=== PATIENT | male | born 1990 | race Caucasian/White ===

== ENCOUNTER 2020-01-31 14:55 | Emergency (ER) | payer MEDICAID, OTHER ==
[2020-01-31] MEDS ORDERED: Sodium Chloride 0.9% 10 ML Syringe FLUSH PRN (15:00)
[2020-01-31] MEDS ORDERED: HYDROmorphone 0.5 MG/0.5 ML Syringe IVPUSH ONE (15:10)
--- NOTE | 2020-01-31 16:10 | EDM.PDOC ---
ED HPI GENERAL MEDICAL PROBLEM - General Chief Complaint: Burn Stated Complaint: ELECTROCUTED Time Seen by Provider: 01/31/20 15:00 Source of Information: Reports: Patient History Limitations: Reports: No Limitations - History of Present Illness INITIAL COMMENTS - FREE TEXT/NARRATIVE: The patient presents because he was electrocuted. 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 He felt it go up his arm and into his chest. He went down to the ground but he had no LOC. He has some pain to the left hand, arm and chest. He has no headache, neck pain, abdominal pain, nausea, vomiting, numbness or weakness. Onset: Sudden Duration: Minutes: Location: Reports: Chest, Upper Extremity, Left Quality: Reports: Sharp Severity: Moderate Improves with: Reports: None Worsens with: Reports: None Associated Symptoms: Reports: Chest Pain. Denies: Cough, Fever/Chills, Headaches, Nausea/Vomiting, Shortness of Breath Left Chest Pain Score (Numeric/FACES): 8 Left Arm Pain Score (Numeric/FACES): 8 - Related Data Allergies Allergy/AdvReac Type Severity Reaction Status Date / Time No Known Allergies Allergy Verified 01/31/20 15:06 Home Meds: Home Meds . [No Known Home Meds] 06/27/14 [History] Past Medical History - Past Health History Medical/Surgical History: Denies Medical/Surgical History Social & Family History - Tobacco Use Smoking Status *Q: Current Every Day Smoker Years of Tobacco use: 20 Packs/Tins Daily: 1.5 - Recreational Drug Use Recreational Drug Use: No ED ROS GENERAL - Review of Systems Review Of Systems: See Below Constitutional: Reports: No Symptoms HEENT: Reports: No Symptoms Respiratory: Reports: No Symptoms Cardiovascular: Reports: No Symptoms Endocrine: Reports: No Symptoms GI/Abdominal: Reports: No Symptoms : Reports: No Symptoms Musculoskeletal: Reports: Other (left arm pain) ED EXAM, BURN/SMOKE INHALATION - Physical Exam Exam: See Below Exam Limited By: No Limitations General Appearance: Alert, No Apparent Distress Ears (Abbreviated): Normal External Exam Head: No Symptoms Neck: No Symptoms Respiratory: No Respiratory Distress, Lungs Clear, Normal Breath Sounds Cardiovascular: Regular Rate, Rhythm, No Edema, No Murmur GI/Abdominal: Soft, Non-Tender, No Organomegaly, No Mass Extremities: Other (pain upon palpation to the left index finger with some carbon on it. He also has some pain to the forearm and hand.) EKG INTERPRETATION EKG Date: 01/31/20 Time: 15:00 Rhythm: NSR Rate (Beats/Min): 75 [place]: Normal P-Wave: Present QRS: Normal ST-T: Normal QT: Normal Course - Vital Signs Last Recorded V/S: Last Vital Signs Temp 97.7 F 01/31/20 15:02 Pulse 65 01/31/20 15:02 Resp 20 01/31/20 15:02 BP 123/81 01/31/20 15:02 Pulse Ox 97 01/31/20 15:02 - Orders/Labs/Meds Orders: Active Orders 24 hr Category Date Time Status Cardiac Monitoring [RC] . DIRECTED Care 01/31/20 15:00 Active EKG Documentation Completion [RC] STAT Care 01/31/20 15:01 Active Peripheral IV Care [RC] . DIRECTED Care 01/31/20 15:01 Active Hand Comp Min 3V Lt [CR] Stat Exams 01/31/20 15:01 Taken Sodium Chloride 0.9% [Saline Flush] Med 01/31/20 15:00 Active 10 ml FLUSH ASDIRECTED PRN Peripheral IV Insertion Adult [OM.PC] Stat Oth 01/31/20 15:00 Ordered Medication Orders Sodium Chloride (Saline Flush) 10 ml FLUSH ASDIRECTED PRN PRN Reason: Keep Vein Open Last Admin: 01/31/20 15:23 Dose: 10 ml Labs: Laboratory Tests 01/31/20 01/31/20 Range/Units 15:15 15:15 WBC 7.29 (4.23-9.07) K/mm3 RBC 4.86 (4.63-6.08) M/mm3 Hgb 14.2 (13.7-17.5) gm/dl Hct 41.7 (40.1-51.0) % MCV 85.8 (79.0-92.2) fl MCH 29.2 (25.7-32.2) pg MCHC 34.1 (32.2-35.5) g/dl RDW Std Deviation 40.9 (35.1-43.9) fL Plt Count 221 (163-337) K/mm3 MPV 10.4 (9.4-12.3) fl Neut % (Auto) 44.8 (34.0-67.9) % Lymph % (Auto) 38.8 (21.8-53.1) % [place] % (Auto) 11.8 (5.3-12.2) % Eos % (Auto) 4.0 (0.8-7.0) Baso % (Auto) 0.3 (0.1-1.2) % Neut # (Auto) 3.27 (1.78-5.38) K/mm3 Lymph # (Auto) 2.83 (1.32-3.57) K/mm3 [place] # (Auto) 0.86 H (0.30-0.82) K/mm3 Eos # (Auto) 0.29 (0.04-0.54) K/mm3 Baso # (Auto) 0.02 (0.01-0.08) K/mm3 Sodium 141 (136-145) mEq/L Potassium 3.4 L (3.5-5.1) mEq/L Chloride 105 (98-107) mEq/L Carbon Dioxide 28 (21-32) mEq/L Anion Gap 11.4 (5-15) BUN 16 (7-18) mg/dL Creatinine 1.2 (0.7-1.3) mg/dL Est Cr Clr Drug Dosing 91.65 mL/min Estimated GFR (MDRD) > 60 (>60) mL/min BUN/Creatinine Ratio 13.3 L (14-18) Glucose 89 (74-106) mg/dL Calcium 9.4 (8.5-10.1) mg/dL Total Bilirubin 0.6 (0.2-1.0) mg/dL AST 19 (15-37) U/L ALT 44 (16-63) U/L Alkaline Phosphatase 71 (46-116) U/L Creatine Kinase 124 (39-308) U/L Troponin I < 0.017 (0.00-0.056) ng/mL Total Protein 6.8 (6.4-8.2) g/dl Albumin 3.9 (3.4-5.0) g/dl Globulin 2.9 gm/dL Albumin/Globulin Ratio 1.3 (1-2) Meds: Medications Generic Name Dose Route Start Last Admin Trade Name Freq PRN Reason Stop Dose Admin Sodium Chloride 10 ml 01/31/20 15:00 01/31/20 15:23 Saline Flush FLUSH 10 ml ASDIRECTED PRN Administration Keep Vein Open Discontinued Medications Generic Name Dose Route Start Last Admin Trade Name Roly PRN Reason Stop Dose Admin Hydromorphone HCl 0.5 mg 01/31/20 15:10 01/31/20 15:23 Dilaudid IVPUSH 01/31/20 15:11 0.5 mg ONETIME ONE Administration - Re-Assessments/Exams Free Text/Narrative Re-Assessment/Exam: 01/31/20 16:20 I ordered an IV saline lock, dilaudid 1mg IV, EKG and labs. His EKG shows a NSR with no acute changes. His CBC looks good. His K is a little low at 3.4. His troponin is negative along with his CK. 01/31/20 16:25 He is a little dizzy from the dilaudid. I feel it is safe to send him home. Departure - Departure Time of Disposition: 16:30 Disposition: Home, Self-Care 01 Condition: Good Clinical Impression: Electrocution - Discharge Information *PRESCRIPTION DRUG MONITORING PROGRAM REVIEWED*: Not Applicable *COPY OF PRESCRIPTION DRUG MONITORING REPORT IN PATIENT JIE: Not Applicable Referrals: PCP,None [Primary Care Provider] - Katherine Price PA-C [Physician [employer] Technician] - Forms: ED Department Discharge Additional Instructions: Take tylenol or motrin for pain. Drink plenty of fluids. Please return if you are worse. Sepsis Event Note - Evaluation Sepsis Screening Result: No Definite Risk - Focused Exam Vital Signs: Vital Signs Temp Pulse Resp BP Pulse Ox 01/31/20 15:02 97.7 F 65 20 123/81 97 Date Exam was Performed: 01/31/20 Time Exam was Performed: 16:25 - My Orders Last 24 Hours: My Active Orders 01/31/20 15:00 Cardiac Monitoring [RC] . DIRECTED Sodium Chloride 0.9% [Saline Flush] 10 ml FLUSH ASDIRECTED PRN Peripheral IV Insertion Adult [OM.PC] Stat 01/31/20 15:01 EKG Documentation Completion [RC] STAT Peripheral IV Care [RC] . DIRECTED Hand Comp Min 3V Lt [CR] Stat - Assessment/Plan Last 24 Hours: My Active Orders 01/31/20 15:00 Cardiac Monitoring [RC] . DIRECTED Sodium Chloride 0.9% [Saline Flush] 10 ml FLUSH ASDIRECTED PRN Peripheral IV Insertion Adult [OM.PC] Stat 01/31/20 15:01 EKG Documentation Completion [RC] STAT Peripheral IV Care [RC] . DIRECTED Hand Comp Min 3V Lt [CR] Stat
--- NOTE | 2020-02-01 11:30 | CR ---
Left hand: 4 views left hand were obtained. Comparison: No prior hand study. Joint spaces are preserved. No fracture, dislocation or other bony abnormality is seen. Impression: 1. No abnormality is appreciated on left hand exam. Diagnostic code #1 This report was dictated in MDT
== END 2020-01-31 16:35 | disposition home or self-care (01) ==
LOC: JD.ED 14:55
DX: T75.4XXA Electrocution, initial encounter (principal); F17.210 Nicotine dependence, cigarettes, uncomplicated
CPT/HCPCS: 36415; 73130; 80053; 82550; 84484; 85025; 93005; 96374; 99283; J1170; 93010; 99284

== ENCOUNTER 2021-07-25 08:55 | Emergency (ER) | payer SELFPAY | END 2021-07-25 09:11 | disposition left against medical advice (07) | LOC: JD.ED 08:55 | DX: Z53.21 Procedure and treatment not carried out due to patient leaving prior to being seen by health care provider (principal) ==

== ENCOUNTER 2021-08-30 20:24 | Emergency (ER) | payer BC ==
--- NOTE | 2021-08-30 22:18 | EDM.PDOC ---
ED HPI GENERAL MEDICAL PROBLEM - General Chief Complaint: Skin Complaint Stated Complaint: HARD LUMP ON LIP Time Seen by Provider: 08/30/21 21:07 Source of Information: Reports: Patient, RN Notes Reviewed History Limitations: Reports: No Limitations - History of Present Illness INITIAL COMMENTS - FREE TEXT/NARRATIVE: Patient is a 30-year-old male presenting to the emergency department with complaints of a lump on his right lower lip. Reports it has been present for approximately 3 months. He had been seen in the clinic at its onset and started an antibiotic, but states there is no difference to the area. Reports it has gotten slightly bigger over the last 3 months but is otherwise been fairly consistent. He has not followed up in the clinic since the initial encounter. Denies any open areas or discharge related to the lump. He patient is on Xarelto for a history of PEs. Right Lower Lip Pain Score (Numeric/FACES): 6 - Related Data Allergies Allergy/AdvReac Type Severity Reaction Status Date / Time No Known Allergies Allergy Verified 01/31/20 15:06 Home Meds: Home Meds Rivaroxaban [Xarelto] 20 mg PO DAILY 08/30/21 [History] Past Medical History - Past Health History Medical/Surgical History: Denies Medical/Surgical History Respiratory History: Reports: PE Other Respiratory History: lung repair as infant-on ventilator - Infectious Disease History Infectious Disease History: Reports: None Social & Family History - Tobacco Use Tobacco Use Status *Q: Current Every Day Tobacco User Years of Tobacco use: 15 Packs/Tins Daily: 1 - Caffeine Use Caffeine Use: Reports: Energy Drinks, Soda - Recreational Drug Use Recreational Drug Use: No Other Recreational Drug Type: no drugs in 15 yr ED ROS GENERAL - Review of Systems Review Of Systems: Comprehensive ROS is negative, except as noted in HPI. ED EXAM, SKIN/RASH Exam: See Below Exam Limited By: No Limitations General Appearance: Alert, WD/WN, No Apparent Distress Respiratory/Chest: No Respiratory Distress, Lungs Clear, Normal Breath Sounds, No Accessory Muscle Use, Chest Non-Tender Cardiovascular: Normal Peripheral Pulses, Regular Rate, Rhythm, No Edema, No Gallop, No JVD, No Murmur, No Rub Neurological: Alert, Oriented, Normal Cognition, Normal Gait, No Motor/Sensory Deficits Psychiatric: Normal Affect, Normal Mood Skin: Other (Approximate 1 cm, round, mobile, firm lump to the right lower lip. No redness or open areas.) Course - Vital Signs Last Recorded V/S: Last Vital Signs Temp 99.0 F 08/30/21 21:14 Pulse 87 08/30/21 21:14 Resp 20 08/30/21 21:14 BP 111/74 08/30/21 21:14 Pulse Ox 99 08/30/21 21:14 - Re-Assessments/Exams Free Text/Narrative Re-Assessment/Exam: Patient is a 30-year-old male presenting to the emergency department with complaints of 3-month history of a bump to his right lower lip. He has been on antibiotics in the past and states it did not change the area. He has not followed up since his initial clinic visit. He is new to the area and does not have a primary care provider. On exam, patient has an approximate 1 cm palpable, firm, mobile nodule to the right lower lip. I suspect this is a cyst. discussed with patient that this will likely require surgical excision with possible biopsy. I will send referral to a primary care provider in the clinic for evaluation. They will also discuss with him whether his Xarelto will need to be held prior to the procedure. Referral be sent to Dr. Robert Mendieta. Discharge instructions as documented. Departure - Departure Time of Disposition: 22:16 Disposition: Home, Self-Care 01 Condition: Good Clinical Impression: Lip cyst - Discharge Information *PRESCRIPTION DRUG MONITORING PROGRAM REVIEWED*: No *COPY OF PRESCRIPTION DRUG MONITORING REPORT IN PATIENT JIE: No Referrals: Robert Mendieta MD [Physician] - Additional Instructions: Call tomorrow to set up appointment to establish care and for evaluation of lump to your right lower lip. Referral has been sent to Dr. Robert Mendieta. Number to schedule [phone]. Return to ER as needed. Sepsis Event Note (ED) - Focused Exam Vital Signs: Vital Signs Temp Pulse Resp BP Pulse Ox 08/30/21 21:14 99.0 F 87 20 111/74 99
== END 2021-08-30 22:42 | disposition home or self-care (01) ==
LOC: JD.ED 20:24
DX: K13.0 Diseases of lips (principal); Z79.01 Long term (current) use of anticoagulants; Z72.0 Tobacco use
CPT/HCPCS: 99282

== ENCOUNTER 2021-12-09 06:55 | Emergency (ER) | payer BC ==
[2021-12-09] MEDS ORDERED: Sodium Chloride 0.9% 10 ML Syringe FLUSH PRN (08:19)
[2021-12-09] MEDS ORDERED: Iopamidol 755 Mg/ML 100 ML Bottle IVPUSH ONE (08:19)
[2021-12-09] MEDS ORDERED: Sodium Chloride 0.9% 100 ML IV SCH (08:30)
== END 2021-12-09 10:43 | disposition home or self-care (01) ==
LOC: JD.ED 06:55
DX: R07.81 Pleurodynia (principal); R04.2 Hemoptysis; Z79.01 Long term (current) use of anticoagulants
CPT/HCPCS: 36415; 71045; 71275; 80053; 84484; 85025; 85379; 85610; 85730; 93005; 99284; Q9967; 93010; 99285